=== PATIENT | female | born 1970 | race African-American/Black ===

== ENCOUNTER 2017-03-21 16:10 | Emergency (ER) | payer OTHER ==
[~2017-03-21] VITALS: Ht 162.6 cm; Wt 70.3 kg
[2017-03-21 16:28] VITALS: BP 152/92
--- NOTE | 2017-03-21 17:16 | Emergency Room Report ---
History of Present Illness General Chief Complaint: Lower Back Pain or Injury Source: Patient (Stacia Combs) Present Illness HPI 46-year-old female presents to the ED c/o 10/ pain to coccyx s/p mechanical slip and fall this am, and 5/10 in severity tenderness to occipital scalp area, no LOC. no nausea/vomiting. Denies loss of vision, blurry vision, urinary retention. Denies taking blood thinning medication other than one advil earlier today. denies open wounds, bleeding, neck pain or spinal pain other than in the tailbone area. Denies numbness tingling or loss of sensation or gross motor movements of the extremities, incontinence of bowel or bladder. Denies CP, Palpitations, LOC, AMS, dizziness, Changes in Vision, Sensation, paresthesias, or a sudden severe headache. (Stacia Combs) Allergies: Coded Allergies: No Known Allergies (Unverified , 03/21/17) Patient History Past Medical History: see triage record Past Surgical History: none Pertinent Family History: none Last Menstrual Period: 02/08/17 Now: No Reviewed Nursing Documentation: PMH: Agreed, PSxH: Agreed (Stacia Combs) Nursing Documentation-PMH Past Medical History: No Stated History (Stacia Combs) Review of Systems All Other Systems: negative except mentioned in HPI (Stacia Combs) Physical Exam Vital Signs Date Time Temp Pulse Resp B/P (MAP) Pulse Ox O2 Delivery O2 Flow Rate FiO2 03/21/17 16:14 97.9 74 18 152/92 100 Room Air Sp02 EP Interpretation: reviewed, normal General Appearance: no apparent distress, alert, GCS 15, non-toxic Head: normocephalic, atraumatic Eyes: bilateral eye normal inspection, bilateral eye PERRL ENT: hearing grossly normal, normal voice Neck: full range of motion Respiratory: chest non-tender, lungs clear, normal breath sounds, speaking full sentences Cardiovascular #1: regular rate, rhythm Gastrointestinal: non tender, soft Rectal: deferred Genitourinary: normal inspection Musculoskeletal: back normal, gait/station normal, normal range of motion, tender - midline ttp to the coccyx region, and bilateral upper gluteal ttp, no lumbar ttp, no obvious deformity, FROM. mild ttp to the posterior occipital scalp region, no swelling/hematoma noted. Neurologic: alert, oriented x3, responsive, motor strength/tone normal, sensory intact, cerebellar normal, normal gait, speech normal, no pronator Skin: normal color, no rash, warm/dry, well hydrated (Stacia Combs) Medical Decision Making PA Attestation Dr. Mayers is my supervising Physician whom patient management has been discussed with. (Stacia Combs) Diagnostic Impression: Primary Impression: Coccygeal contusion Qualified Codes: S30.0XXA - Contusion of lower back and pelvis, initial encounter Additional Impression: Contusion of occipital region of scalp Qualified Codes: S00.03XA - Contusion of scalp, initial encounter ER Course 46-year-old female presents to the ED c/o 10/10 pain to coccyx s/p mechanical slip and fall this am, and 5/10 in severity tenderness to occipital scalp area, no LOC. no nausea/vomiting. Denies loss of vision, blurry vision, urinary retention. Denies taking blood thinning medication other than one Advil earlier today. denies open wounds, bleeding, neck pain or spinal pain other than in the tailbone area. Denies numbness tingling or loss of sensation or gross motor movements of the extremities, incontinence of bowel or bladder. Denies CP, Palpitations, LOC, AMS, dizziness, Changes in Vision, Sensation, paresthesias, or a sudden severe headache. Ddx considered but are not limited to Fracture, dislocation, contusion, Sprain/ Strain/Spasm just to name a few. Vital signs: are WNL, pt. is afebrile H&PE are most consistent with musculoskeletal injury will perform imaging to r/ o fractures/dislocations. , no evidence of neurological deficit or cauda equina syndrome. ORDERS: - X-ray coccyx: negative for acute fx per preliminary read in the ED by JUNE Combs, reviewed by attending physician. ED INTERVENTIONS: - Tylenol PO DISCHARGE: At this time pt. is stable for d/c to home. Will provide printed patient care instructions, and any necessary prescriptions. Care plan and follow up instructions have been discussed with the patient prior to discharge. (Stacia Combs) ER Course I have reviewed the PA's interpretation of Xray results and agree with findings. (Lily Mayers M.D.) Other X-Ray Diagnostic Results Other X-Ray Diagnostic Results : X-Ray ordered: coccyx # of Views/Limited Vs Complete: 2 View Indication: Pain EP Interpretation: Yes PA Xray: Interpretation reviewed, by supervising MD, and agrees with findings. Interpretation: no dislocation, no soft tissue swelling, no fractures Impression: No acute disease Electronically Signed by: Stacia Combs PA-C (Stacia Combs) Last Vital Signs Date Time Temp Pulse Resp B/P (MAP) Pulse Ox O2 Delivery O2 Flow Rate FiO2 03/21/17 16:28 97.9 18 152/92 100 Room Air 03/21/17 16:14 74 (Stacia Combs) Disposition: HOME, SELF-CARE Condition: Stable Scripts Acetaminophen With Codeine (T#3) (TYLENOL #3 TAB*) Y Tab 1 TAB ORAL Q6HR Y for For Pain, #6 TAB Prov: Stacia Combs 03/21/17 Lidocaine (Lidoderm) 1 Each Adh..patch 1 PATCH TOPIC DAILY, #20 PATCH 0 Refills Patch(es) may remain in place for up to 12 hours in any 24-hour period. Prov: Stacia Combs 03/21/17 Acetaminophen* (TYLENOL EXTRA STRENGTH*) 500 Mg Tablet 500 MG ORAL Q6H Y for Mild Pain/Temp > 100.5, #20 TAB 0 Refills Prov: Stacia Combs 03/21/17 Referrals: Abhishek PIMENTEL,REFERRING (PCP) Patient Instructions: Contusion, Head Injury, Adult, [id number], Tailbone Injury, [id number] Additional Instructions: Take medications as directed. Follow up with a Primary Care Provider in 3-5 days, even if your symptoms have resolved. --Please review list of primary care clinics, if you do not already have a primary care provider Return sooner to ED if new symptoms occur, or current symptoms become worse. - Please note that this Emergency Department Report was dictated using [employer] technology software, occasionally this can lead to erroneous entry secondary to interpretation by the dictation equipment. Stacia Combs Mar 21, 2017 17:16 Lily Mayers M.D. Apr 02, 2017 01:06
[2017-03-21] MEDS ORDERED: LIDODERM700 M1 TOPIC (17:34)
[2017-03-21] MEDS ORDERED: ACETAMINOPHEN-1 EAC1 ORAL (17:34)
[2017-03-21] MEDS ORDERED: TYLENOL EXTRA500 MG ORAL (17:34)
[2017-03-21 17:43] VITALS: BP 148/88
--- NOTE | 2017-03-22 11:03 | Diagnostic Imaging Report ---
Indication: Back pain Comparison: None Findings: 3 views of the sacrum and coccyx were obtained. Findings: No acute fracture is identified. The sacroiliac joints are unremarkable. Sacral ala appear symmetric. There is some obscuring due to overlying bowel gas and stool. Hypertrophied facets L5-S1 noted. Impression: No acute injury identified.
== END 2017-03-21 17:46 | disposition home or self-care (01) ==
LOC: EMR 16:29
DX: S30.0XXA Contusion of lower back and pelvis, initial encounter (principal); S00.03XA Contusion of scalp, initial encounter; W01.0XXA Fall on same level from slipping, tripping and stumbling without subsequent striking against object, initial encounter; Y92.89 Other specified places as the place of occurrence of the external cause
CPT/HCPCS: 72220; 99284